=== PATIENT | male | born 2000 | race Caucasian/White ===

== ENCOUNTER 2023-02-28 15:56 | Outpatient (CLI) | payer OTHER, SELFPAY ==
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
== END 2023-02-28 15:57 ==
LOC: MICIMG 15:57
PROVIDERS: PCP Family Medicine Adolescent Medicine; Visit Provider Podiatrist Foot & Ankle Surgery
DX: S90.31XA Contusion of right foot, initial encounter (principal); R60.9 Edema, unspecified
CPT/HCPCS: 73718

== ENCOUNTER 2024-11-21 19:24 | Emergency (ER) | payer OTHER, SELFPAY ==
--- NOTE | ~2024-11-21 | CT_ITS ---
CLINICAL INDICATION: Remote history of right ankle injury now with edema, pain and fever. COMPARISON: None. TECHNIQUE: Computed tomography (CT) of the right ankle was performed following the administration of intravenous contrast. The dose-length product was 524.06 mGy-cm. FINDINGS/OBSERVATIONS: Within the deep portion of the posterior compartment of the right leg at the level of the flexor branch ucis longus tendon is a rim-enhancing fluid collection measuring 19 x 12 mm. A small fluid collection is also identified within the deep part of the posterior compartment of the right lower leg at the level of the tibialis posterior muscle measuring 8.5 x 9 mm. Significant soft tissue swelling is noted, as is small joint effusions. No additional rim-enhancing fluid collections are appreciated. IMPRESSION: Two rim enhancing fluid collections, both within the deep part of the posterior compartment of the lo wer leg, as detailed above. The largest measuring 19 mm in greatest dimension. Reviewed, dictated and finalized at location A. IMPRESSION: Two rim enhancing fluid collections, both within the deep part of the posterior compartment of the lower leg, as detailed above. The largest measuring 19 mm in greatest dimension.
--- OUTSIDE RECORDS SUMMARY | 2024-11-21 19:26 | XMS_ITS | Clinical Summary ---
Author Organization [facility] Address [address] [place] [address] Care Team Providers Care Cashier Payments Received Name Role Phone No, Physician Primary Care Provider Allergies No known active allergies Medications predniSONE (DELTASONE) 20 mg tablet 10/06/2020 Active Ventolin HFA 90 mcg/actuation inhaler 08/20/2020 Active meloxicam (MOBIC) 7.5 mg tabletIndication s:Discogenic pain Take 1 tablet (7.5 mg total) by mouth daily 35 tablet 10/10/2020 Active Active Problems No known active problems Surgical History Surgery Date Site/Laterality Comments TONSILLECTOMY 07/18/2008 - 08/17/2008 Medical History Medical History Date Comments Asthma Family History Medical History Relation Name Comments Seizures Brother Clotting disorder Sister Relation Name Status Comments Brother Sister Social History Tobacco Use Types Packs/Day Years Used Date Smoking Tobacco: Never AUDIT-C Answer Date Recorded Q1: How often do you have a drink containing alc ohol? 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
--- OUTSIDE RECORDS SUMMARY | 2024-11-21 19:26 | XMS_ITS | Referral Summary ---
Author Organization [facility] Address [address] [place] [address] Care Team Providers Care Industrial Gas Servicer Name Role Phone No, Physician Primary Care Provider [phone] Allergies No known active allergies Medications predniSONE (DELTASONE) 20 mg tablet 10/06/2020 Active Ventolin HFA 90 mcg/actuation inhaler 08/20/2020 Active meloxicam (MOBIC) 7.5 mg tabletIndication s:Discogenic pain Take 1 tablet (7.5 mg total) by mouth daily 35 tablet 10/10/2020 Active Active Problems No known active problems Social History Tobacco Use Types Packs/Day Years [...] on file 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
[2024-11-21 19:36] VITALS: BP 151/93; PULSE 88; RESP 22; TEMP 37.7; O2SAT 97
--- OUTSIDE RECORDS SUMMARY | 2024-11-21 21:35 | XMS_ITS | Referral Summary ---
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
--- OUTSIDE RECORDS SUMMARY | 2024-11-21 21:35 | XMS_ITS | Clinical Summary ---
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
[2024-11-21 21:44] LABS: Basophils Percent Auto 0.4 % (0.2-1.2); Eosinophils Absolute Auto 0.1 K/mm3 (0-0.3); Eosinophils Percent Auto 0.9 % (0-4.4); Hematocrit 37.1 % (42.0-52.0); Hemoglobin 12.4 g/dL (14.0-18.0); Immature Granulocyte Absolute 0.05 K/mm3 (0.00-0.031); Immature Granulocyte Percent A 0.5 % (0-0.5); Lymphocytes Absolute Auto 1.27 K/mm3 (0.9-3.2); Mean Corpuscular HGB Conc 33.4 g/dl (32-36); Mean Corpuscular Hemoglobin 31.2 pg (26-34); Mean Corpuscular Volume 93.5 fl (80-100); Mean Platelet Volume 9.3 fl (7.4-10.4); Monocytes Absolute Auto 0.8 K/mm3 (0.1-0.6); Monocytes Percent Auto 7.5 % (2.6-8.5); Neutrophils Absolute Auto 8.3 K/mm3 (1.3-6.7); Neutrophils Percent Auto 78.7 % (45.5-73.1); Platelet Count Result 527 k/mm3 (150-375); Red Blood Count 3.97 M/mm3 (4.6-6.20); Red Cell Distribution Width 12.1 % (11.5-14.5); White Blood Count 10.6 K/mm3 (4.5-10.0)
[2024-11-21] MEDS: KETOROLAC 15 MG/ML VIAL (*BKC) IV PUSH (21:52)
[2024-11-21 21:57] LABS: Anion Gap 10 mmol/L (4-12); Blood Urea Nitrogen 8 mg/dL (9-20); Calcium 9.5 mg/dL (8.4-10.2); Carbon Dioxide 29 mmol/L (22-30); Chloride 101 mmol/L (98-107); Estimated CRCL calculation 146 ml/min; Estimated Glomerular Filt Rate > 60; Glucose 98 mg/dL (65-110); Potassium 3.6 mmol/L (3.4-5.0); Sodium 140 mmol/L (137-145)
[2024-11-21 22:07] LABS: CRP 17.9 mg/dL (<1.0)
[2024-11-21 22:30] LABS: Erythrocyte Sedimentation Rate 133 mm/hr (0-20)
--- NOTE | 2024-11-21 22:57 | PC.NURSE ---
patient report given to Amy OROZCO at this time.
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
[2024-11-22 00:34] VITALS: PULSE 93; RESP 17; O2SAT 97
[2024-11-22 00:46] VITALS: BP 137/93; PULSE 101; RESP 19; O2SAT 99
--- NOTE | 2024-11-22 00:50 | PC.NURSE ---
Pt is accepted by Dr. Shai MD for nurse to nurse report [facility] [place], [place] Please send a disk with pt.
[2024-11-22] MEDS: ACETAMINOPHEN 500 MG TABLET 1000 MG PO (01:07)
[2024-11-22] MEDS: CEFEPIME 2 GM/NS 50 ML 2 GM/50 ML BAG IVPB (01:09)
--- NOTE | 2024-11-22 01:58 | PC.NURSE ---
Pt leaving ED on stretcher accompanied by EMS. Report given to EMS and ERNESTO Pfeiffer from receiving facility. EMS provided with copy of chart, Disc w/images, 2bags of Vancomycin (refer to MAR), PCS and transfer authorization. Pt has an 18G IV R A/CS VS- WNL
== END 2024-11-22 01:57 | disposition short-term general hospital (02) ==
PROVIDERS: Emergency Provider Emergency Medicine
DX: M00.9 Pyogenic arthritis, unspecified (principal)
CPT/HCPCS: 36415; 73701; 80048; 85025; 85652; 86140; 87040; 96365; 96367; 96374; 99285; A9270; J0692; J1885